=== PATIENT | male | born 1965 | race Two or more races ===

== ENCOUNTER 2018-09-18 21:31 | Inpatient (IN) | payer OTHER ==
[~2018-09-18] VITALS: Ht 182.9 cm; Wt 92.2 kg
[~2018-09-18 21:31] MED LIST: ASPI-496 PO; ETOMIDATE 20 MG/10 ML ONE; PROPOFOL 10 MG/ML, 100ML IV ONE; ROCURONIUM 10 MG/ML,10ML ONE; SIMV40TA3 PO; SODIUM BICARB 8.4%, 50ML SYRINGE ONE
[2018-09-18] MEDS ORDERED: SODIUM CHLORIDE 0.9% 1,000ML IVBOLUS ONE (22:00)
[2018-09-18 22:08] LABS: MEAN CORPUSCULAR HEMOGLOBIN 33.5 pg (27.5-34.5); MEAN CORPUSCULAR HGB CONC 33.5 g/dL (33.2-36.2); MEAN CORPUSCULAR VOLUME 100.1 fL (81-97); MEAN PLATELET VOLUME 8.2 fL (7.4-10.4); PLATELET COUNT 215 x10^3/uL (130-400); RED BLOOD COUNT 4.92 x10^6/uL (4.38-5.82); RED CELL DISTRIBUTION WIDTH 14.1 % (9.4-14.8)
[2018-09-18 22:17] LABS: ALANINE AMINOTRANSFERASE 141 U/L (12-78); ALBUMIN 4.2 g/dL (3.4-5.0); ANION GAP 23 mmol/L (5-15); CALCIUM 8.7 mg/dL (8.5-10.1); CHLORIDE 103 mmol/L (98-107); CREATININE 1.53 mg/dL (0.7-1.3)
[2018-09-18 22:19] LABS: ALKALINE PHOSPHATASE 94 U/L (45-117); BILIRUBIN,TOTAL 0.7 mg/dL (0.2-1.0); INTERNATIONAL NORMALIZED RATIO 1.04 (0.93-1.1); PROTHROMBIN TIME 10.8 Seconds (9.6-11.5); TOTAL PROTEIN 7.9 g/dL (6.4-8.2)
[2018-09-18 22:28] LABS: MD YES
[2018-09-18] MEDS ORDERED: FILTER 0.22 MICRON IV ONE (22:30)
[2018-09-18] MEDS ORDERED: AMIODARONE 900 MG in DEXTROSE 5% 482 ML IV PRN (22:30)
[2018-09-18 22:32] LABS: <PLATELET ESTIMATE> ADEQUATE; ANISOCYTOSIS 1+; BAND#(MANUAL) 0.32 x10^3/uL; BANDS%(MANUAL) 3 % (0-7); BASOS#(MANUAL) 0.22 x10^3/uL (0-0.1); BASOS% (MANUAL) 2 % (0-1); LYMPHS% (MANUAL) 63 % (22-44); MONOS#(MANUAL) 0.32 x10^3/uL (0.3-2.7); MONOS% (MANUAL) 3 % (2-9); SEG#(MANUAL) 3.13 x10^3/uL (1.8-6.8); SEGS% (MANUAL) 29 % (42-75)
[2018-09-18 22:33] LABS: <PLT MORPHOLOGY> NORMAL PLT MORPH
[2018-09-18] MEDS ORDERED: SODIUM BICARBONATE 8.4% 100 MEQ in SODIUM CHLORIDE 0.45% 1,000 ML IV SCH (23:00)
[2018-09-18] MEDS ORDERED: POTASSIUM CHLORIDE 40 MEQ in SODIUM CHLORIDE 0.9% 100 ML IV ONE (23:00)
[2018-09-18] MEDS ORDERED: CODE BLUE RESPONSE XX ONE (23:18)
[2018-09-18] MEDS ORDERED: EPINEPHRINE SYRINGE 0.1 MG/ML, 10ML ONE (23:18)
[2018-09-18] MEDS ORDERED: OMNIPAQUE 350 MG/ML, 150 ML BOTTLE ONE (23:22)
[2018-09-18] MEDS ORDERED: LIDOCAINE IV PRN (23:45)
[2018-09-18] MEDS ORDERED: DEX IV PRN (23:45)
[2018-09-18] MEDS ORDERED: LIDOCAINE/DEX 5% IV,2GM/500ML 500 ML IV PRN (23:45)
[2018-09-19] MEDS ORDERED: FAMOTIDINE 20 MG/2 ML IVPush SCH
[2018-09-19] MEDS ORDERED: POLYETHYLENE GLYCOL 17 GM PACKET PO PRN
[2018-09-19] MEDS ORDERED: hydrALAzine 20 MG/ML, 1ML IVPush PRN
[2018-09-19] MEDS ORDERED: PROMETHAZINE 25 MG/ML, 1ML IM PRN
[2018-09-19] MEDS ORDERED: GABAPENTIN 300 MG CAPSULE PO PRN
[2018-09-19] MEDS ORDERED: ONDANSETRON ODT 4 MG PO PRN
[2018-09-19] MEDS ORDERED: morphine SULFATE 10 MG/ML, 1ML IVPush PRN
[2018-09-19] MEDS ORDERED: ACETAMINOPHEN 325 MG TABLET PO PRN
[2018-09-19] MEDS ORDERED: ONDANSETRON 2MG/ML, 2ML IVPush PRN
[2018-09-19] MEDS ORDERED: LABETALOL 5MG/ML, 20ML IVPush PRN
[2018-09-19] MEDS ORDERED: PIPERACILLIN/TAZO 2.25 GM in SODIUM CHLORIDE 0.9% 50 ML IV SCH (00:30)
[2018-09-19] MEDS ORDERED: PROPOFOL 100 ML IV PRN ×2 (00:30)
[2018-09-19] MEDS ORDERED: POTASSIUM CHLORIDE 40 MEQ in SODIUM CHLORIDE 0.9% 100 ML IV ONE ×2 (00:30→21:30)
[2018-09-19] MEDS ORDERED: FUROSEMIDE 40 MG/4 ML IV ONE (00:30)
[2018-09-19 00:43] LABS: FREE T4 (FREE THYROXINE) 0.89 ng/dL (0.76-1.46); THYROID STIMULATING HORMONE 5.55 mIU/L (0.358-3.740)
[2018-09-19 00:56] LABS: ANION GAP 18 mmol/L (5-15); CALCIUM 7.4 mg/dL (8.5-10.1); CHLORIDE 104 mmol/L (98-107); CREATININE 1.25 mg/dL (0.7-1.3)
[2018-09-19] MEDS ORDERED: PIPERACILLIN/TAZO/PMX 2.25GM 50 ML IV SCH (01:01)
[2018-09-19] MEDS ORDERED: FENTANYL PF 250 MCG in SODIUM CHLORIDE 0.9% 250 ML IV PRN (01:05)
[2018-09-19] MEDS ORDERED: SODIUM PHOSPHATE 20 MMOL in SODIUM CHLORIDE 0.9% 250 ML IVPB PRN (01:05)
[2018-09-19] MEDS ORDERED: NOREPINEPHRINE 4 MG in SODIUM CHLORIDE 0.9% 246 ML IV PRN (01:05)
[2018-09-19] MEDS: KSCALE TO 4.0 IV SCH ×6 (01:15→21:30)
[2018-09-19] MEDS: PROPOFOL 100 ML IV PRN ×2 (01:24→04:12)
[2018-09-19] MEDS: BUSPIRONE 10 MG TABLET NG SCH ×3 (01:30→17:38)
[2018-09-19] MEDS ORDERED: CALCIUM CHLORIDE 13.6 MEQ in DEXTROSE 5% 100 ML IVPB PRN (01:30)
[2018-09-19] MEDS: ARTIFICIAL TEARS OINT 3.5 GM EACHEYE SCH ×4 (01:30→17:38)
[2018-09-19] MEDS ORDERED: MIDAZOLAM 1 MG/ML, 2ML IVPush PRN (02:00)
[2018-09-19] MEDS: MIDAZOLAM HCL 50 MG in SODIUM CHLORIDE 0.9% 240 ML IV PRN ×2 (02:21→08:27)
[2018-09-19] MEDS: VASOPRESSIN 100 UNIT in SODIUM CHLORIDE 0.9% 495 ML IV PRN (02:33)
[2018-09-19] MEDS ORDERED: SODIUM BICARBONATE 8.4% 150 MEQ in SODIUM CHLORIDE 0.45% 1,000 ML IV SCH (03:19)
[2018-09-19] MEDS ORDERED: SODIUM BICARBONATE 1 MEQ/ML, 50ML VIAL ONE ×2 (03:25→12:17)
[2018-09-19] MEDS ORDERED: EPINEPHRINE 2 MG in SODIUM CHLORIDE 0.9% 248 ML IV PRN (03:30)
[2018-09-19] MEDS ORDERED: NOREPINEPHRINE 8 MG in SODIUM CHLORIDE 0.9% 242 ML IV PRN ×2 (03:39→06:06)
[2018-09-19 04:00] VITALS: BP 109/79
[2018-09-19] MEDS ORDERED: FENTANYL PF 2,500 MCG in SODIUM CHLORIDE 0.9% 200 ML IV PRN (04:00)
[2018-09-19] MEDS: VECURONIUM 10 MG IVPush PRN ×3 (04:55→21:20)
[2018-09-19] MEDS ORDERED: ATROPINE SYRINGE 0.1 MG/ML, 10ML ONE ×2 (05:04→10:05)
[2018-09-19] MEDS ORDERED: ATROPINE SYRINGE 0.1 MG/ML, 10ML IVPush ONE (05:30)
[2018-09-19 05:39] LABS: BASOPHILS # (AUTO) 0.04 x10^3/uL (0-0.1); BASOPHILS % (AUTO) 0 % (0-1); EOSINOPHILS # (AUTO) 0.03 x10^3/uL (0-0.4); EOSINOPHILS % (AUTO) 0 % (1-7); LYMPHOCYTES % (AUTO) 10 % (22-44); MD NO; MEAN CORPUSCULAR HEMOGLOBIN 33.8 pg (27.5-34.5); MEAN CORPUSCULAR HGB CONC 34.2 g/dL (33.2-36.2); MEAN PLATELET VOLUME 7.6 fL (7.4-10.4); MONOCYTES # (AUTO) 0.69 x10^3/uL (0.2-0.8); MONOCYTES % (AUTO) 4 % (2-9); NEUTROPHILS # (AUTO) 15.02 x10^3/uL (1.8-6.8); NEUTROPHILS % (AUTO) 85 % (42-75); PLATELET COUNT 209 x10^3/uL (130-400); RED BLOOD COUNT 4.82 x10^6/uL (4.38-5.82); RED CELL DISTRIBUTION WIDTH 14.2 % (9.4-14.8)
[2018-09-19 05:49] LABS: ALANINE AMINOTRANSFERASE 276 U/L (12-78); ALBUMIN 3.3 g/dL (3.4-5.0); ANION GAP 17 mmol/L (5-15); CALCIUM 6.9 mg/dL (8.5-10.1); CHLORIDE 110 mmol/L (98-107); CHOLESTEROL, TOTAL 191 mg/dL (140-239); CREATININE 1.52 mg/dL (0.7-1.3); TRIGLYCERIDES 584 mg/dL (50-200)
[2018-09-19 05:51] LABS: ALKALINE PHOSPHATASE 70 U/L (45-117); BILIRUBIN,TOTAL 0.7 mg/dL (0.2-1.0); CHOL/HDL RATIO 5.5; HDL CHOL % 18 % (26-37); HDL CHOLESTEROL (DIRECT) 35 mg/dL (40-60); TOTAL PROTEIN 6.1 g/dL (6.4-8.2)
[2018-09-19] MEDS ORDERED: EPINEPHRINE 1 MG in SODIUM CHLORIDE 0.9% 249 ML IV PRN (06:06)
[2018-09-19] MEDS ORDERED: VASOPRESSIN 100 UNIT in SODIUM CHLORIDE 0.9% 495 ML IV PRN (06:06)
[2018-09-19] MEDS ORDERED: DEXTROSE 4 GM TAB.CHEW PO PRN (06:30)
[2018-09-19] MEDS ORDERED: DEXTROSE 50%, 50ML SYRINGE IVPush PRN (06:30)
[2018-09-19] MEDS ORDERED: SENNOSIDES 8.8 MG/5 ML ORAL SOL NG PRN (06:30)
[2018-09-19] MEDS ORDERED: PHARMACY MAY ADJ FOR RENAL FX MC SCH (06:30)
[2018-09-19] MEDS ORDERED: PIPERACILLIN/TAZO/PMX 3.375GM 50 ML IV SCH ×2 (06:30)
[2018-09-19] MEDS ORDERED: GLUCAGON 1 MG IM PRN (06:30)
[2018-09-19] MEDS: ALBUTEROL/IPRATROPIUM 2.5MG/0.5MG, 3 ML INLINE SCH ×5 (06:30→22:16)
[2018-09-19] MEDS ORDERED: LIDOCAINE-MPF 1%, 2ML ENDO PRN (06:30)
[2018-09-19] MEDS ORDERED: BISACODYL 10 MG SUPP PR PRN ×2 (06:30)
[2018-09-19] MEDS ORDERED: SENNA/DOCUSATE TABLET NG PRN (06:30)
[2018-09-19] MEDS ORDERED: LACTULOSE 20 GM/30 ML UDC NG PRN (06:30)
[2018-09-19] MEDS: HEPARIN 5,000 UNITS/ML, 1ML SQ SCH ×3 (06:32→16:32)
[2018-09-19] MEDS ORDERED: POTASSIUM CHLORIDE PMX 100 ML IV ONE ×3 (07:00→14:30)
[2018-09-19] MEDS ORDERED: FUROSEMIDE 20 MG/2 ML IV SCH (07:30)
[2018-09-19] MEDS ORDERED: EPINEPHRINE 1 MG/ML, 1ML ONE (07:46)
[2018-09-19] MEDS ORDERED: VECURONIUM 10 MG IVPush PRN (08:00)
[2018-09-19] MEDS: SODIUM BICARBONATE 8.4% 150 MEQ in SODIUM CHLORIDE 0.45% 1,000 ML IV SCH ×2 (08:30→14:41)
[2018-09-19 08:35] LABS: MICROSCOPIC AUTO
[2018-09-19 08:40] LABS: CULTURE INDICATED? YES
[2018-09-19] MEDS: SENNA/DOCUSATE TABLET PO SCH (09:00)
[2018-09-19] MEDS: AMPICILLIN/SULBACTAM 3 GM in SODIUM CHLORIDE 0.9% 100 ML IV SCH ×3 (09:12→20:26)
[2018-09-19] MEDS: REGULAR INSULIN 62.5 UNITS in SODIUM CHLORIDE 0.9% 249.375 ML IV PRN ×2 (09:12→18:01)
[2018-09-19] MEDS: PANTOPRAZOLE 40 MG IV IV SCH (09:29)
[2018-09-19] MEDS: SODIUM CHLORIDE FLUSH 10ML SYR IVF SCH ×2 (09:32→22:06)
[2018-09-19] MEDS: EPINEPHRINE 4 MG in SODIUM CHLORIDE 0.9% 246 ML IV PRN ×2 (11:35→17:54)
[2018-09-19] MEDS ORDERED: SODIUM BICARB 8.4%, 50ML SYRINGE ONE ×3 (12:19→21:09)
[2018-09-19] MEDS ORDERED: SODIUM BICARBONATE 1 MEQ/ML, 50ML VIAL IVPush ONE (12:30)
[2018-09-19] MEDS: MAGNESIUM SULFATE 1 GM in SODIUM CHLORIDE 0.9% 50 ML IVPB PRN (14:14)
[2018-09-19] MEDS ORDERED: SODIUM BICARB 8.4%, 50ML SYRINGE IVPush ONE ×4 (14:30→21:30)
[2018-09-19] MEDS ORDERED: SODIUM BICARBONATE 8.4% 150 MEQ in DEXTROSE 5% 1,000 ML IV SCH (15:30)
[2018-09-19] MEDS ORDERED: POTASSIUM CHLORIDE 30 MEQ in SODIUM CHLORIDE 0.9% 100 ML IV ONE (18:00)
[2018-09-19] MEDS ORDERED: FUROSEMIDE 20 MG/2 ML IV ONE (22:00)
[2018-09-19] MEDS ORDERED: FUROSEMIDE 20 MG/2 ML ONE (22:00)
[2018-09-19 22:11] LABS: CREATINE KINASE, TOTAL 1687 U/L (39-308)
[2018-09-19] MEDS: REGULAR INSULIN 250 UNITS in SODIUM CHLORIDE 0.9% 247.5 ML IV PRN (22:27)
[2018-09-20] MEDS: SODIUM BICARBONATE 8.4% 150 MEQ in DEXTROSE 5% 1,000 ML IV SCH ×2 (00:15→06:27)
[2018-09-20] MEDS: EPINEPHRINE 4 MG in SODIUM CHLORIDE 0.9% 246 ML IV PRN ×4 (00:15→22:20)
[2018-09-20] MEDS: HEPARIN 5,000 UNITS/ML, 1ML SQ SCH ×3 (00:55→15:44)
[2018-09-20] MEDS: AMPICILLIN/SULBACTAM 3 GM in SODIUM CHLORIDE 0.9% 100 ML IV SCH ×4 (00:56→20:30)
[2018-09-20] MEDS: BUSPIRONE 10 MG TABLET NG SCH ×3 (00:56→17:09)
[2018-09-20] MEDS: KSCALE TO 4.0 IV SCH ×5 (01:30→21:00)
[2018-09-20] MEDS: PROPOFOL 100 ML IV PRN ×4 (02:24→22:25)
[2018-09-20] MEDS: VECURONIUM 10 MG IVPush PRN ×7 (02:24→23:40)
[2018-09-20] MEDS: ALBUTEROL/IPRATROPIUM 2.5MG/0.5MG, 3 ML INLINE SCH ×6 (02:30→22:15)
[2018-09-20 03:42] LABS: ANION GAP 16 mmol/L (5-15); CALCIUM 6.1 mg/dL (8.5-10.1); CHLORIDE 114 mmol/L (98-107); CREATININE 0.98 mg/dL (0.7-1.3)
[2018-09-20 03:46] LABS: BASOPHILS # (AUTO) 0.02 x10^3/uL (0-0.1); BASOPHILS % (AUTO) 0 % (0-1); EOSINOPHILS % (AUTO) 0 % (1-7); LYMPHOCYTES # (AUTO) 0.68 x10^3/uL (1-3.4); LYMPHOCYTES % (AUTO) 7 % (22-44); MD NO; MEAN CORPUSCULAR HEMOGLOBIN 33.6 pg (27.5-34.5); MEAN CORPUSCULAR HGB CONC 33.9 g/dL (33.2-36.2); MEAN CORPUSCULAR VOLUME 99.2 fL (81-97); MEAN PLATELET VOLUME 7.8 fL (7.4-10.4); MONOCYTES % (AUTO) 3 % (2-9); NEUTROPHILS # (AUTO) 9.49 x10^3/uL (1.8-6.8); NEUTROPHILS % (AUTO) 91 % (42-75); PLATELET COUNT 155 x10^3/uL (130-400); RED BLOOD COUNT 4.28 x10^6/uL (4.38-5.82)
[2018-09-20 04:00] VITALS: BP 135/73
[2018-09-20] MEDS: ARTIFICIAL TEARS OINT 3.5 GM EACHEYE SCH ×3 (04:41→18:10)
[2018-09-20] MEDS ORDERED: POTASSIUM CHLORIDE 30 MEQ in SODIUM CHLORIDE 0.9% 100 ML IV ONE ×2 (05:00→10:00)
[2018-09-20] MEDS: MAGNESIUM SULFATE 1 GM in SODIUM CHLORIDE 0.9% 50 ML IVPB PRN ×2 (05:04→10:16)
[2018-09-20] MEDS: REGULAR INSULIN 250 UNITS in SODIUM CHLORIDE 0.9% 247.5 ML IV PRN (05:04)
[2018-09-20 06:23] VITALS: BP 135/73
[2018-09-20] MEDS ORDERED: SODIUM PHOSPHATE 20 MMOL in SODIUM CHLORIDE 0.9% 500 ML IV ONE (07:30)
[2018-09-20] MEDS: PANTOPRAZOLE 40 MG IV IV SCH (08:53)
[2018-09-20] MEDS: SENNA/DOCUSATE TABLET PO SCH (09:00)
[2018-09-20] MEDS: SODIUM CHLORIDE FLUSH 10ML SYR IVF SCH ×2 (09:33→22:21)
[2018-09-20] MEDS ORDERED: SODIUM CHLORIDE 0.45% IV ONE (10:00)
[2018-09-20] MEDS ORDERED: POTASSIUM PHOSPHATE IV ONE (10:00)
[2018-09-20] MEDS: INSULIN LISPRO 100 UNITS/ML, PEN SQ-INSULIN SCH ×3 (11:00→20:50)
[2018-09-20] MEDS: FENTANYL PF 2,500 MCG in SODIUM CHLORIDE 0.9% 200 ML IV PRN (13:44)
[2018-09-20] MEDS ORDERED: POTASSIUM CHLORIDE PMX 100 ML IV ONE ×2 (14:30→18:30)
[2018-09-20] MEDS ORDERED: SODIUM BICARBONATE 8.4% 150 MEQ in DEXTROSE 5% 1,000 ML IV SCH (15:30)
[2018-09-20] MEDS: VASOPRESSIN 100 UNIT in SODIUM CHLORIDE 0.9% 495 ML IV PRN (16:34)
[2018-09-20] MEDS ORDERED: MAGNESIUM SULFATE 1 GM in SODIUM CHLORIDE 0.9% 50 ML IVPB PRN (18:30)
[2018-09-21] MEDS: HEPARIN 5,000 UNITS/ML, 1ML SQ SCH ×3 (00:51→17:28)
[2018-09-21] MEDS: BUSPIRONE 10 MG TABLET NG SCH ×3 (00:51→17:28)
[2018-09-21] MEDS: ALBUTEROL/IPRATROPIUM 2.5MG/0.5MG, 3 ML INLINE SCH ×6 (02:23→22:43)
[2018-09-21] MEDS: AMPICILLIN/SULBACTAM 3 GM in SODIUM CHLORIDE 0.9% 100 ML IV SCH ×3 (02:37→17:28)
[2018-09-21] MEDS: ARTIFICIAL TEARS OINT 3.5 GM EACHEYE SCH ×3 (02:38→17:28)
[2018-09-21] MEDS: KSCALE TO 4.0 IV SCH ×5 (02:42→17:00)
[2018-09-21] MEDS ORDERED: SODIUM ACETATE 150 MEQ in DEXTROSE 5% 1,000 ML IV SCH (03:00)
[2018-09-21] MEDS: PROPOFOL 100 ML IV PRN ×3 (03:42→13:52)
[2018-09-21 04:00] VITALS: BP 129/65
[2018-09-21] MEDS: EPINEPHRINE 4 MG in SODIUM CHLORIDE 0.9% 246 ML IV PRN ×2 (04:55→13:51)
[2018-09-21 05:25] LABS: BASOPHILS # (AUTO) 0.03 x10^3/uL (0-0.1); BASOPHILS % (AUTO) 0 % (0-1); EOSINOPHILS # (AUTO) 0.03 x10^3/uL (0-0.4); EOSINOPHILS % (AUTO) 0 % (1-7); LYMPHOCYTES # (AUTO) 1.01 x10^3/uL (1-3.4); LYMPHOCYTES % (AUTO) 11 % (22-44); MD NO; MEAN CORPUSCULAR HEMOGLOBIN 33.9 pg (27.5-34.5); MEAN CORPUSCULAR HGB CONC 34.3 g/dL (33.2-36.2); MEAN CORPUSCULAR VOLUME 98.8 fL (81-97); MONOCYTES # (AUTO) 0.26 x10^3/uL (0.2-0.8); MONOCYTES % (AUTO) 3 % (2-9); NEUTROPHILS # (AUTO) 8.13 x10^3/uL (1.8-6.8); NEUTROPHILS % (AUTO) 86 % (42-75); PLATELET COUNT 133 x10^3/uL (130-400); RED BLOOD COUNT 3.68 x10^6/uL (4.38-5.82); RED CELL DISTRIBUTION WIDTH 14.6 % (9.4-14.8)
[2018-09-21 05:36] LABS: CHLORIDE 109 mmol/L (98-107)
[2018-09-21 05:45] LABS: ALANINE AMINOTRANSFERASE 132 U/L (12-78); ALBUMIN 2.4 g/dL (3.4-5.0); ALKALINE PHOSPHATASE 53 U/L (45-117); ANION GAP 11 mmol/L (5-15); BILIRUBIN,TOTAL 0.8 mg/dL (0.2-1.0); CALCIUM 6.9 mg/dL (8.5-10.1); CREATININE 0.73 mg/dL (0.7-1.3); TOTAL PROTEIN 4.8 g/dL (6.4-8.2)
[2018-09-21] MEDS: INSULIN LISPRO 100 UNITS/ML, PEN SQ-INSULIN SCH ×3 (07:00→21:30)
[2018-09-21] MEDS ORDERED: CALCIUM CHLORIDE 13.6 MEQ in SODIUM CHLORIDE 0.9% 100 ML IV ONE (07:30)
[2018-09-21] MEDS: SENNA/DOCUSATE TABLET PO SCH (09:00)
[2018-09-21] MEDS: PANTOPRAZOLE 40 MG IV IV SCH (11:17)
[2018-09-21] MEDS: SODIUM CHLORIDE FLUSH 10ML SYR IVF SCH ×2 (11:18→21:00)
[2018-09-21] MEDS: SODIUM ACETATE 150 MEQ in DEXTROSE 5% 1,000 ML IV SCH (17:18)
[2018-09-21] MEDS: FENTANYL PF 2,500 MCG in SODIUM CHLORIDE 0.9% 200 ML IV PRN (19:38)
[2018-09-22] MEDS: HEPARIN 5,000 UNITS/ML, 1ML SQ SCH ×3 (00:39→18:22)
[2018-09-22] MEDS: AMPICILLIN/SULBACTAM 3 GM in SODIUM CHLORIDE 0.9% 100 ML IV SCH ×5 (00:40→23:52)
[2018-09-22] MEDS: PROPOFOL 100 ML IV PRN ×2 (01:39→07:39)
[2018-09-22] MEDS: ALBUTEROL/IPRATROPIUM 2.5MG/0.5MG, 3 ML INLINE SCH ×4 (02:45→14:30)
[2018-09-22] MEDS: ARTIFICIAL TEARS OINT 3.5 GM EACHEYE SCH ×3 (02:55→18:00)
[2018-09-22] MEDS: INSULIN LISPRO 100 UNITS/ML, PEN SQ-INSULIN SCH ×4 (03:00→21:00)
[2018-09-22 03:38] LABS: ANION GAP 4 mmol/L (5-15); CALCIUM 7.4 mg/dL (8.5-10.1); CHLORIDE 107 mmol/L (98-107); CREATININE 0.68 mg/dL (0.7-1.3); TRIGLYCERIDES 304 mg/dL (50-200)
[2018-09-22 03:58] LABS: BASOPHILS # (AUTO) 0.02 x10^3/uL (0-0.1); BASOPHILS % (AUTO) 0 % (0-1); EOSINOPHILS # (AUTO) 0.05 x10^3/uL (0-0.4); EOSINOPHILS % (AUTO) 1 % (1-7); LYMPHOCYTES # (AUTO) 0.73 x10^3/uL (1-3.4); LYMPHOCYTES % (AUTO) 10 % (22-44); MD NO; MEAN CORPUSCULAR HEMOGLOBIN 33.9 pg (27.5-34.5); MEAN CORPUSCULAR HGB CONC 34.6 g/dL (33.2-36.2); MEAN CORPUSCULAR VOLUME 98.1 fL (81-97); MEAN PLATELET VOLUME 8.3 fL (7.4-10.4); MONOCYTES # (AUTO) 0.22 x10^3/uL (0.2-0.8); MONOCYTES % (AUTO) 3 % (2-9); NEUTROPHILS # (AUTO) 6.01 x10^3/uL (1.8-6.8); NEUTROPHILS % (AUTO) 85 % (42-75); PLATELET COUNT 113 x10^3/uL (130-400); RED BLOOD COUNT 3.29 x10^6/uL (4.38-5.82); RED CELL DISTRIBUTION WIDTH 14.4 % (9.4-14.8)
[2018-09-22 04:00] VITALS: BP 105/54
[2018-09-22] MEDS: SODIUM ACETATE 150 MEQ in DEXTROSE 5% 1,000 ML IV SCH (07:39)
[2018-09-22] MEDS: SENNA/DOCUSATE TABLET PO SCH (09:49)
[2018-09-22] MEDS: PANTOPRAZOLE 40 MG IV IV SCH (09:50)
[2018-09-22] MEDS: SODIUM CHLORIDE FLUSH 10ML SYR IVF SCH ×2 (09:50→21:14)
[2018-09-23] MEDS: ARTIFICIAL TEARS OINT 3.5 GM EACHEYE SCH (02:30)
[2018-09-23] MEDS: INSULIN LISPRO 100 UNITS/ML, PEN SQ-INSULIN SCH (03:00)
[2018-09-23] MEDS ORDERED: NOREPINEPHRINE 1 MG/ML, 4ML ONE (03:42)
[2018-09-23] MEDS ORDERED: ADENOSINE 6 MG/2 ML ONE (03:58)
[2018-09-23 04:00] VITALS: BP 103/56
[2018-09-23] MEDS ORDERED: AMIODARONE 150 MG in DEXTROSE 5% 100 ML IV ONE ×5 (04:00→10:00)
[2018-09-23] MEDS ORDERED: AMIODARONE 900 MG in DEXTROSE 5% 482 ML IV PRN (04:00)
[2018-09-23] MEDS ORDERED: FILTER 0.22 MICRON IV PRN (04:00)
[2018-09-23] MEDS: HEPARIN 5,000 UNITS/ML, 1ML SQ SCH (04:20)
[2018-09-23] MEDS ORDERED: LIDOCAINE 2% 100MG/5ML SYRINGE IVPush ONE (04:30)
[2018-09-23 04:51] LABS: MEAN CORPUSCULAR HGB CONC 33.9 g/dL (33.2-36.2); MEAN CORPUSCULAR VOLUME 97.2 fL (81-97); MEAN PLATELET VOLUME 8.3 fL (7.4-10.4); PLATELET COUNT 127 x10^3/uL (130-400); RED CELL DISTRIBUTION WIDTH 13.9 % (9.4-14.8)
[2018-09-23 04:54] LABS: ANION GAP 11 mmol/L (5-15); CALCIUM 8.2 mg/dL (8.5-10.1); CHLORIDE 111 mmol/L (98-107); CREATININE 0.78 mg/dL (0.7-1.3)
[2018-09-23] MEDS ORDERED: LIDOCAINE IV PRN (05:00)
[2018-09-23] MEDS ORDERED: DEX IV PRN (05:00)
[2018-09-23] MEDS: AMPICILLIN/SULBACTAM 3 GM in SODIUM CHLORIDE 0.9% 100 ML IV SCH ×3 (05:30→17:53)
[2018-09-23 05:40] LABS: BASOPHILS # (AUTO) 0.01 x10^3/uL (0-0.1); BASOPHILS % (AUTO) 0 % (0-1); EOSINOPHILS # (AUTO) 0.06 x10^3/uL (0-0.4); EOSINOPHILS % (AUTO) 1 % (1-7); LYMPHOCYTES # (AUTO) 0.66 x10^3/uL (1-3.4); LYMPHOCYTES % (AUTO) 10 % (22-44); MD SCAN; MONOCYTES # (AUTO) 0.21 x10^3/uL (0.2-0.8); MONOCYTES % (AUTO) 3 % (2-9); NEUTROPHILS # (AUTO) 5.34 x10^3/uL (1.8-6.8); NEUTROPHILS % (AUTO) 85 % (42-75)
[2018-09-23] MEDS ORDERED: POTASSIUM CHLORIDE 20 MEQ TAB.ER.PRT PO ONE (08:00)
[2018-09-23] MEDS ORDERED: METOPROLOL 1 MG/ML, 5ML ONE (09:24)
[2018-09-23] MEDS ORDERED: METOPROLOL 1 MG/ML, 5ML IVPush STA (09:27)
[2018-09-23] MEDS ORDERED: METOPROLOL 1 MG/ML, 5ML IVPush PRN ×2 (10:30→11:00)
[2018-09-23] MEDS: PANTOPRAZOLE 40 MG IV IV SCH (10:44)
[2018-09-23] MEDS: SENNA/DOCUSATE TABLET PO SCH (10:44)
[2018-09-23] MEDS: ENOXAPARIN 40 MG/0.4 ML SQ SCH (15:38)
[2018-09-24] MEDS: AMPICILLIN/SULBACTAM 3 GM in SODIUM CHLORIDE 0.9% 100 ML IV SCH ×4 (00:20→18:04)
[2018-09-24 05:36] LABS: ANION GAP 9 mmol/L (5-15); CHLORIDE 112 mmol/L (98-107); CREATININE 0.73 mg/dL (0.7-1.3)
[2018-09-24] MEDS ORDERED: SODIUM CHLORIDE 0.9% 1,000 ML IV ONE (07:51)
[2018-09-24] MEDS ORDERED: FUROSEMIDE 20 MG/2 ML ONE (08:48)
[2018-09-24] MEDS ORDERED: CARVEDILOL 3.125 MG TABLET ONE (08:48)
[2018-09-24] MEDS: SENNA/DOCUSATE TABLET PO SCH (09:00)
[2018-09-24] MEDS ORDERED: FUROSEMIDE 20 MG/2 ML IV ONE (09:00)
[2018-09-24] MEDS ORDERED: CARVEDILOL 3.125 MG TABLET PO SCH ×2 (09:00→18:00)
[2018-09-24] MEDS: PANTOPRAZOLE 40 MG IV IV SCH (10:12)
[2018-09-24] MEDS: ASPIRIN 325 MG TABLET EC PO SCH (11:57)
[2018-09-24] MEDS ORDERED: MIDAZOLAM 1 MG/ML, 5ML ONE (14:33)
[2018-09-24] MEDS ORDERED: FENTANYL PF 100 MCG/2ML ONE (14:33)
[2018-09-24] MEDS ORDERED: BIVALIRUDIN 250 MG ONE (14:34)
[2018-09-24] MEDS ORDERED: VERAPAMIL 2.5 MG/ML, 2ML ONE (14:34)
[2018-09-24] MEDS ORDERED: HEPARIN 1,000 UNITS/ML, 10ML ONE (14:34)
[2018-09-24] MEDS ORDERED: TICAGRELOR 90 MG TABLET ONE (14:34)
[2018-09-24] MEDS ORDERED: POTASSIUM CHLORIDE 20 MEQ TAB.ER.PRT PO ONE (15:30)
[2018-09-24] MEDS ORDERED: FUROSEMIDE 40 MG/4 ML IV ONE (15:30)
[2018-09-24] MEDS: ENOXAPARIN 40 MG/0.4 ML SQ SCH (16:43)
[2018-09-24] MEDS ORDERED: MELATONIN 3 MG TABLET PO PRN (17:00)
[2018-09-24] MEDS ORDERED: SIMVASTATIN 40 MG TABLET PO SCH (21:00)
[2018-09-25] MEDS: AMPICILLIN/SULBACTAM 3 GM in SODIUM CHLORIDE 0.9% 100 ML IV SCH ×4 (00:27→20:06)
[2018-09-25 04:22] LABS: BASOPHILS # (AUTO) 0.02 x10^3/uL (0-0.1); BASOPHILS % (AUTO) 0 % (0-1); EOSINOPHILS # (AUTO) 0.07 x10^3/uL (0-0.4); EOSINOPHILS % (AUTO) 1 % (1-7); LYMPHOCYTES # (AUTO) 0.84 x10^3/uL (1-3.4); LYMPHOCYTES % (AUTO) 13 % (22-44); MD NO; MEAN CORPUSCULAR HEMOGLOBIN 33.7 pg (27.5-34.5); MEAN CORPUSCULAR HGB CONC 34.8 g/dL (33.2-36.2); MEAN CORPUSCULAR VOLUME 96.8 fL (81-97); MEAN PLATELET VOLUME 7.7 fL (7.4-10.4); MONOCYTES % (AUTO) 11 % (2-9); NEUTROPHILS # (AUTO) 4.84 x10^3/uL (1.8-6.8); NEUTROPHILS % (AUTO) 75 % (42-75); PLATELET COUNT 159 x10^3/uL (130-400); RED BLOOD COUNT 3.36 x10^6/uL (4.38-5.82); RED CELL DISTRIBUTION WIDTH 13.1 % (9.4-14.8)
[2018-09-25 04:34] LABS: ALANINE AMINOTRANSFERASE 67 U/L (12-78); ALBUMIN 2.6 g/dL (3.4-5.0); ANION GAP 11 mmol/L (5-15); CALCIUM 7.6 mg/dL (8.5-10.1); CHLORIDE 109 mmol/L (98-107); CREATININE 0.73 mg/dL (0.7-1.3)
[2018-09-25 04:37] LABS: ALKALINE PHOSPHATASE 82 U/L (45-117); BILIRUBIN,TOTAL 1.1 mg/dL (0.2-1.0); TOTAL PROTEIN 5.9 g/dL (6.4-8.2)
[2018-09-25] MEDS ORDERED: POTASSIUM CHLORIDE 20 MEQ TAB.ER.PRT PO SCH ×2 (08:00→17:00)
[2018-09-25] MEDS ORDERED: POTASSIUM CHLORIDE 20 MEQ TAB.ER.PRT ONE (08:26)
[2018-09-25] MEDS ORDERED: CEFAZOLIN PMX 1GM/50ML 50 ML IVPB ONE (08:30)
[2018-09-25] MEDS: SENNA/DOCUSATE TABLET PO SCH (09:00)
[2018-09-25] MEDS: PANTOPRAZOLE 40 MG IV IV SCH (10:07)
[2018-09-25] MEDS: ASPIRIN 325 MG TABLET EC PO SCH (11:00)
[2018-09-25] MEDS ORDERED: FENTANYL PF 100 MCG/2ML ONE (14:24)
[2018-09-25] MEDS ORDERED: CEFAZOLIN 1,000 MG ONE (14:24)
[2018-09-25] MEDS ORDERED: PROPOFOL 10 MG/ML, 20ML ONE (14:49)
[2018-09-25] MEDS ORDERED: HOLD MEDICATION MC PRN (15:30)
[2018-09-25] MEDS: ATORVASTATIN 80 MG TABLET PO SCH (20:15)
[2018-09-25] MEDS: SODIUM CHLORIDE FLUSH 10ML SYR IVF SCH (20:15)
[2018-09-25 20:33] VITALS: BP 150/80
[2018-09-25] MEDS: CEFAZOLIN PMX 1GM/50ML 50 ML IVPB SCH (23:23)
[2018-09-25] MEDS ORDERED: AMIODARONE 150 MG in DEXTROSE 5% 100 ML IV ONE (23:30)
[2018-09-25] MEDS ORDERED: FILTER 0.22 MICRON IV PRN (23:30)
[2018-09-25] MEDS ORDERED: AMIODARONE 900 MG in DEXTROSE 5% 482 ML IV PRN (23:30)
[2018-09-26] MEDS: AMPICILLIN/SULBACTAM 3 GM in SODIUM CHLORIDE 0.9% 100 ML IV SCH (01:19)
[2018-09-26 05:01] LABS: BASOPHILS # (AUTO) 0.02 x10^3/uL (0-0.1); BASOPHILS % (AUTO) 0 % (0-1); EOSINOPHILS # (AUTO) 0.32 x10^3/uL (0-0.4); EOSINOPHILS % (AUTO) 5 % (1-7); LYMPHOCYTES # (AUTO) 0.86 x10^3/uL (1-3.4); LYMPHOCYTES % (AUTO) 14 % (22-44); MD NO; MEAN CORPUSCULAR HEMOGLOBIN 33.3 pg (27.5-34.5); MEAN CORPUSCULAR HGB CONC 34.5 g/dL (33.2-36.2); MEAN CORPUSCULAR VOLUME 96.5 fL (81-97); MEAN PLATELET VOLUME 8.1 fL (7.4-10.4); MONOCYTES # (AUTO) 0.62 x10^3/uL (0.2-0.8); MONOCYTES % (AUTO) 10 % (2-9); NEUTROPHILS # (AUTO) 4.37 x10^3/uL (1.8-6.8); NEUTROPHILS % (AUTO) 71 % (42-75); PLATELET COUNT 186 x10^3/uL (130-400); RED BLOOD COUNT 3.47 x10^6/uL (4.38-5.82); RED CELL DISTRIBUTION WIDTH 13.2 % (9.4-14.8)
[2018-09-26 05:08] LABS: CALCIUM 7.4 mg/dL (8.5-10.1); CHLORIDE 108 mmol/L (98-107)
[2018-09-26 05:15] LABS: ALANINE AMINOTRANSFERASE 58 U/L (12-78); ALBUMIN 2.6 g/dL (3.4-5.0); ALKALINE PHOSPHATASE 70 U/L (45-117); ANION GAP 10 mmol/L (5-15); BILIRUBIN,TOTAL 1.1 mg/dL (0.2-1.0); CREATININE 0.63 mg/dL (0.7-1.3); TOTAL PROTEIN 5.7 g/dL (6.4-8.2)
[2018-09-26] MEDS: CEFAZOLIN PMX 1GM/50ML 50 ML IVPB SCH (09:00)
[2018-09-26] MEDS: SENNA/DOCUSATE TABLET PO SCH (09:00)
[2018-09-26] MEDS: ASPIRIN 325 MG TABLET EC PO SCH (09:01)
[2018-09-26] MEDS: PANTOPRAZOLE 40 MG IV IV SCH (09:02)
[2018-09-26] MEDS: SODIUM CHLORIDE FLUSH 10ML SYR IVF SCH ×2 (09:08→20:41)
[2018-09-26] MEDS ORDERED: MAGNESIUM SULFATE PMX 2GM/50ML 50 ML IV ONE (09:30)
[2018-09-26] MEDS: POTASSIUM CHLORIDE 20 MEQ TAB.ER.PRT PO SCH ×3 (10:23→20:41)
[2018-09-26] MEDS: AMIODARONE 200 MG TABLET PO SCH ×2 (10:23→20:41)
[2018-09-26 10:24] VITALS: BP 156/86
[2018-09-26] MEDS: LISINOPRIL 10 MG TABLET PO SCH (10:24)
[2018-09-26 12:49] VITALS: BP 151/85
[2018-09-26] MEDS ORDERED: AMIODARONE 900 MG in DEXTROSE 5% 482 ML IV PRN (14:30)
[2018-09-26] MEDS: ENOXAPARIN 40 MG/0.4 ML SQ SCH (15:58)
[2018-09-26] MEDS: CARVEDILOL 3.125 MG TABLET PO SCH (17:45)
[2018-09-26 19:31] VITALS: BP 159/96
[2018-09-26] MEDS: ATORVASTATIN 80 MG TABLET PO SCH (20:41)
[2018-09-27 00:48] VITALS: BP 158/95
[2018-09-27 05:46] VITALS: BP 147/85
[2018-09-27] MEDS: CARVEDILOL 3.125 MG TABLET PO SCH ×2 (05:48→17:50)
[2018-09-27 06:10] LABS: BASOPHILS # (AUTO) 0.02 x10^3/uL (0-0.1); BASOPHILS % (AUTO) 0 % (0-1); EOSINOPHILS # (AUTO) 0.36 x10^3/uL (0-0.4); EOSINOPHILS % (AUTO) 5 % (1-7); LYMPHOCYTES # (AUTO) 0.84 x10^3/uL (1-3.4); LYMPHOCYTES % (AUTO) 12 % (22-44); MD NO; MEAN CORPUSCULAR HEMOGLOBIN 33.8 pg (27.5-34.5); MEAN CORPUSCULAR HGB CONC 34.6 g/dL (33.2-36.2); MEAN CORPUSCULAR VOLUME 97.6 fL (81-97); MEAN PLATELET VOLUME 7.9 fL (7.4-10.4); MONOCYTES # (AUTO) 0.57 x10^3/uL (0.2-0.8); MONOCYTES % (AUTO) 8 % (2-9); NEUTROPHILS # (AUTO) 5.18 x10^3/uL (1.8-6.8); NEUTROPHILS % (AUTO) 74 % (42-75); PLATELET COUNT 238 x10^3/uL (130-400); RED BLOOD COUNT 3.65 x10^6/uL (4.38-5.82); RED CELL DISTRIBUTION WIDTH 13.5 % (9.4-14.8)
[2018-09-27 06:17] LABS: ANION GAP 7 mmol/L (5-15); CALCIUM 7.7 mg/dL (8.5-10.1); CHLORIDE 109 mmol/L (98-107); CREATININE 0.67 mg/dL (0.7-1.3)
[2018-09-27] MEDS ORDERED: PANTOPROZOLE 40MG TABLET ONE (07:42)
[2018-09-27 08:15] VITALS: BP 152/87
[2018-09-27] MEDS: SODIUM CHLORIDE FLUSH 10ML SYR IVF SCH ×2 (08:44→20:01)
[2018-09-27] MEDS: PANTOPRAZOLE 40 MG IV IV SCH (08:44)
[2018-09-27] MEDS: POTASSIUM CHLORIDE 20 MEQ TAB.ER.PRT PO SCH ×3 (08:45→20:01)
[2018-09-27] MEDS: ASPIRIN 325 MG TABLET EC PO SCH (08:45)
[2018-09-27] MEDS: LISINOPRIL 10 MG TABLET PO SCH (08:45)
[2018-09-27] MEDS: AMIODARONE 200 MG TABLET PO SCH ×2 (08:45→20:00)
[2018-09-27 10:35] VITALS: BP 127/79
[2018-09-27] MEDS: SPIRONOLACTONE 25 MG TABLET PO SCH (10:40)
[2018-09-27 14:38] VITALS: BP 138/89
[2018-09-27] MEDS: ENOXAPARIN 40 MG/0.4 ML SQ SCH (17:50)
[2018-09-27 19:57] VITALS: BP 147/96
[2018-09-27] MEDS: ATORVASTATIN 80 MG TABLET PO SCH (20:01)
[2018-09-28 02:00] VITALS: BP 134/84
[2018-09-28] MEDS ORDERED: PANTOPROZOLE 40MG TABLET PO SCH (06:00)
[2018-09-28 06:07] LABS: ALBUMIN 3.1 g/dL (3.4-5.0); ANION GAP 12 mmol/L (5-15); CALCIUM 8.2 mg/dL (8.5-10.1); CHLORIDE 109 mmol/L (98-107)
[2018-09-28 06:09] LABS: BASOPHILS # (AUTO) 0.02 x10^3/uL (0-0.1); BASOPHILS % (AUTO) 0 % (0-1); EOSINOPHILS % (AUTO) 4 % (1-7); LYMPHOCYTES # (AUTO) 1.06 x10^3/uL (1-3.4); LYMPHOCYTES % (AUTO) 13 % (22-44); MD NO; MEAN CORPUSCULAR HEMOGLOBIN 32.9 pg (27.5-34.5); MEAN CORPUSCULAR HGB CONC 33.9 g/dL (33.2-36.2); MEAN CORPUSCULAR VOLUME 97.1 fL (81-97); MEAN PLATELET VOLUME 7.8 fL (7.4-10.4); MONOCYTES # (AUTO) 0.66 x10^3/uL (0.2-0.8); MONOCYTES % (AUTO) 8 % (2-9); NEUTROPHILS # (AUTO) 6.46 x10^3/uL (1.8-6.8); NEUTROPHILS % (AUTO) 76 % (42-75); PLATELET COUNT 303 x10^3/uL (130-400); RED BLOOD COUNT 3.95 x10^6/uL (4.38-5.82); RED CELL DISTRIBUTION WIDTH 13.4 % (9.4-14.8)
[2018-09-28 06:16] VITALS: BP 158/101
[2018-09-28] MEDS: CARVEDILOL 3.125 MG TABLET PO SCH (06:20)
[2018-09-28 06:21] LABS: ALANINE AMINOTRANSFERASE 67 U/L (12-78); ALKALINE PHOSPHATASE 76 U/L (45-117); BILIRUBIN,TOTAL 0.9 mg/dL (0.2-1.0); CREATININE 0.72 mg/dL (0.7-1.3); TOTAL PROTEIN 6.6 g/dL (6.4-8.2)
[2018-09-28 06:23] VITALS: BP 147/90
[2018-09-28 07:05] VITALS: BP 137/89
[2018-09-28] MEDS: LISINOPRIL 10 MG TABLET PO SCH (08:46)
[2018-09-28] MEDS: SPIRONOLACTONE 25 MG TABLET PO SCH (08:46)
[2018-09-28] MEDS: POTASSIUM CHLORIDE 20 MEQ TAB.ER.PRT PO SCH (08:46)
[2018-09-28] MEDS: AMIODARONE 200 MG TABLET PO SCH (08:47)
[2018-09-28] MEDS: ASPIRIN 325 MG TABLET EC PO SCH (08:47)
[2018-09-28] MEDS: SODIUM CHLORIDE FLUSH 10ML SYR IVF SCH (08:47)
[2018-09-28] MEDS ORDERED: LISI-167 PO (10:01)
[2018-09-28] MEDS ORDERED: POTA20TA6 PO (10:01)
[2018-09-28] MEDS ORDERED: CLOP75TA52 PO (10:01)
[2018-09-28] MEDS ORDERED: CARV6.2512 PO (10:01)
[2018-09-28] MEDS ORDERED: FURO-93 PO (10:01)
[2018-09-28] MEDS ORDERED: GABA300C10 PO (10:01)
[2018-09-28] MEDS ORDERED: AMIO200T42 PO (10:01)
[2018-09-28] MEDS ORDERED: SPIR25TA PO (10:01)
[2018-09-28] MEDS ORDERED: CARVEDILOL 6.25 MG TABLET PO SCH (18:00)
== END 2018-09-28 12:15 | disposition home or self-care (01) | DRG 222 ==
LOC: ED 22:13 → EDIP 23:27 → CCU 09-19 00:48 → 5SO 09-25 16:24 → DCLOUNGE 09-28 12:04
PROVIDERS: ADMIT Internal Medicine; ATTEND Internal Medicine
PROC: 02HV33Z Insertion of Infusion Device into Superior Vena Cava, Percutaneous Approach (ICD-10-PCS; 2018-09-18)
PROC: B548ZZA Ultrasonography of Superior Vena Cava, Guidance (ICD-10-PCS; 2018-09-18)
PROC: 5A12012 Performance of Cardiac Output, Single, Manual (ICD-10-PCS; 2018-09-18)
PROC: 5A1945Z Respiratory Ventilation, 24-96 Consecutive Hours (ICD-10-PCS; 2018-09-18)
PROC: 0BH17EZ Insertion of Endotracheal Airway into Trachea, Via Natural or Artificial Opening (ICD-10-PCS; 2018-09-18)
PROC: 04HY32Z Insertion of Monitoring Device into Lower Artery, Percutaneous Approach (ICD-10-PCS; 2018-09-19)
PROC: 4A133B1 Monitoring of Arterial Pressure, Peripheral, Percutaneous Approach (ICD-10-PCS; 2018-09-19)
PROC: 4A133J1 Monitoring of Arterial Pulse, Peripheral, Percutaneous Approach (ICD-10-PCS; 2018-09-19)
PROC: 4A023N7 Measurement of Cardiac Sampling and Pressure, Left Heart, Percutaneous Approach (ICD-10-PCS; 2018-09-24)
PROC: B2151ZZ Fluoroscopy of Left Heart using Low Osmolar Contrast (ICD-10-PCS; 2018-09-24)
PROC: B2111ZZ Fluoroscopy of Multiple Coronary Arteries using Low Osmolar Contrast (ICD-10-PCS; 2018-09-24)
PROC: 02HK3KZ Insertion of Defibrillator Lead into Right Ventricle, Percutaneous Approach (ICD-10-PCS; 2018-09-25)
PROC: 02H63KZ Insertion of Defibrillator Lead into Right Atrium, Percutaneous Approach (ICD-10-PCS; 2018-09-25)
PROC: 0JH608Z Insertion of Defibrillator Generator into Chest Subcutaneous Tissue and Fascia, Open Approach (ICD-10-PCS; principal; 2018-09-25 14:00)
PROC: 5A09357 Assistance with Respiratory Ventilation, Less than 24 Consecutive Hours, Continuous Positive Airway Pressure (ICD-10-PCS; 2018-09-27)
DX: I21.4 Non-ST elevation (NSTEMI) myocardial infarction (principal); I46.9 Cardiac arrest, cause unspecified; I49.01 Ventricular fibrillation; J69.0 Pneumonitis due to inhalation of food and vomit; J96.00 Acute respiratory failure, unspecified whether with hypoxia or hypercapnia; N17.0 Acute kidney failure with tubular necrosis; E87.4 Mixed disorder of acid-base balance; I42.9 Cardiomyopathy, unspecified; I47.1 Supraventricular tachycardia; I47.2 Ventricular tachycardia; I50.22 Chronic systolic (congestive) heart failure; J98.11 Atelectasis; R57.9 Shock, unspecified; Z99.11 Dependence on respirator [ventilator] status; E31.0 Autoimmune polyglandular failure; E78.5 Hyperlipidemia, unspecified; R73.9 Hyperglycemia, unspecified; E87.6 Hypokalemia; G47.33 Obstructive sleep apnea (adult) (pediatric); H70.90 Unspecified mastoiditis, unspecified ear; I07.1 Rheumatic tricuspid insufficiency; I25.10 Atherosclerotic heart disease of native coronary artery without angina pectoris; I44.1 Atrioventricular block, second degree; I71.2 Thoracic aortic aneurysm, without rupture; J32.4 Chronic pansinusitis; K75.89 Other specified inflammatory liver diseases; Z86.73 Personal history of transient ischemic attack (TIA), and cerebral infarction without residual deficits; Z87.74 Personal history of (corrected) congenital malformations of heart and circulatory system; Z87.891 Personal history of nicotine dependence; Z79.02 Long term (current) use of antithrombotics/antiplatelets; Z79.899 Other long term (current) drug therapy
CPT/HCPCS: 31500; 33249; 36415; 36600; 93458; 99291; 99292; J7620; 70450; 70496; 70498; 70551; 71045; 71275; 74175; 80047; 80048; 80053; 80061; 81001; 82330; 82550; 82803; 82962; 83036; 83605; 83690; 83735; 83880; 84100; 84132; 84439; 84443; 84478; 84484; 85025; 85610; 85730; 87040; 87070; 87081; 87086; 87205; 92950; 93005; 93306; 93970; 94002; 94003; 94640; 96365; 96366; 96368; 96375; 99156; C1721; C1769; C1779; C1892; C1894; C1895; G0378; J0295; J0461; J0583; J0690; J1644; J1650; J1815; J1940; J2001; J2250; J2543; J2704; J3010; J3475; J3480; J7070; Q9967; C9113; J0171; J0282; J2270; J7030; J7040; J7050; J7060